=== PATIENT | female | born 1975 ===

== ENCOUNTER → 2022-02-10 | Day surgery (SDC) | payer OTHER ==
[~2022-02-10] VITALS: Ht 152.4 cm; Wt 83.0 kg
[~2022-02-10] MED LIST: ALBUTERO PO; COZAAR50 MG PO
== END | disposition home or self-care (01) ==
LOC: ADM 02-05 07:15 → CIR.AMB 07:15
PROVIDERS: ATTEND Obstetrics & Gynecology Obstetrics
DX: Q51.828 Other congenital malformations of cervix (principal); I10 Essential (primary) hypertension; E78.00 Pure hypercholesterolemia, unspecified; J45.909 Unspecified asthma, uncomplicated; Z87.891 Personal history of nicotine dependence; G43.909 Migraine, unspecified, not intractable, without status migrainosus; E66.9 Obesity, unspecified